=== PATIENT | male | born 1985 | race Two or more races ===

== ENCOUNTER 2020-03-13 16:33 | Outpatient (CLI) | payer OTHER | END 2020-03-13 17:00 | disposition home or self-care (01) | LOC: RAD 16:33 | PROVIDERS: ATTEND Physical Medicine & Rehabilitation | DX: M17.12 Unilateral primary osteoarthritis, left knee (principal) ==

== ENCOUNTER 2021-05-13 11:32 | Emergency (ER) | payer OTHER ==
[~2021-05-13] VITALS: Ht 175.3 cm; Wt 77.1 kg
== END 2021-05-13 13:57 | disposition home or self-care (01) ==
LOC: ER 11:32
DX: S71.112A Laceration without foreign body, left thigh, initial encounter (principal); Y93.18 Activity, surfing, windsurfing and boogie boarding; Y92.832 Beach as the place of occurrence of the external cause

== ENCOUNTER 2021-05-29 11:28 | Emergency (ER) | payer OTHER ==
[~2021-05-29] VITALS: Ht 172.7 cm; Wt 70.8 kg
== END 2021-05-29 14:01 ==
LOC: ER 11:28
DX: Z48.02 Encounter for removal of sutures (principal)

== ENCOUNTER 2022-07-09 08:56 | Emergency (ER) | payer OTHER ==
[~2022-07-09] VITALS: Ht 170.2 cm; Wt 78.0 kg
[2022-07-09] MEDS ORDERED: NORFLEX100MG PO (10:31)
[2022-07-09] MEDS ORDERED: CYCLOBENZAPRINE10 MG PO (10:31)
[2022-07-10] MEDS ORDERED: KETO10TA2 PO (13:35)
== END 2022-07-09 14:34 | disposition home or self-care (01) ==
LOC: ER 08:56
DX: M62.830 Muscle spasm of back (principal)

== ENCOUNTER 2022-07-10 10:37 | Emergency (ER) | payer OTHER ==
[~2022-07-10] VITALS: Ht 172.7 cm; Wt 78.0 kg
[~2022-07-10 10:37] MED LIST: CYCLOBENZAPRINE10 MG PO; NORFLEX100MG PO
[2022-07-10] MEDS ORDERED: KETO10TA2 PO (13:35)
== END 2022-07-10 13:49 | disposition home or self-care (01) ==
LOC: ER 10:37
DX: M54.50 Low back pain, unspecified (principal)

== ENCOUNTER 2022-07-17 11:37 | Outpatient (CLI) | payer OTHER ==
[~2022-07-17 11:37] MED LIST changes: +KETO10TA2 PO
== END 2022-07-17 11:44 | disposition home or self-care (01) ==
LOC: MRI 11:37
DX: M54.16 Radiculopathy, lumbar region (principal); M54.50 Low back pain, unspecified; M47.816 Spondylosis without myelopathy or radiculopathy, lumbar region
CPT/HCPCS: 72148

== ENCOUNTER 2023-06-25 08:37 | Outpatient (CLI) | payer OTHER | END 2023-06-25 08:48 | disposition home or self-care (01) | LOC: SONOGRAMA 08:37 | PROVIDERS: ATTEND Specialist | DX: R59.0 Localized enlarged lymph nodes (principal) ==

== ENCOUNTER 2023-09-27 18:34 | Emergency (ER) | payer OTHER ==
[~2023-09-27] VITALS: Ht 170.2 cm; Wt 74.8 kg
[2023-09-27] MEDS ORDERED: DIPHENHYDRAMINE HCL 50 MG/ML VIAL 1ML IV ONE (19:30)
[2023-09-27] MEDS ORDERED: 0.9 % SODIUM CHLORIDE 500 ML IV SCH (19:30)
[2023-09-27] MEDS ORDERED: FAMOTIDINE/PF 20 MG/2 ML VIAL IV ONE (19:30)
[2023-09-27] MEDS ORDERED: BENADRYL ALLERG25 MG PO (21:52)
[2023-09-27] MEDS ORDERED: MEDROLPACK PO (21:52)
== END 2023-09-27 22:09 | disposition home or self-care (01) ==
LOC: ER 18:34
DX: S99.821A Other specified injuries of right foot, initial encounter (principal); X58.XXXA Exposure to other specified factors, initial encounter; Y93.89 Activity, other specified; Y92.832 Beach as the place of occurrence of the external cause; Y99.9 Unspecified external cause status